=== PATIENT | male | born 1950 | race African-American/Black ===

== ENCOUNTER 2016-03-15 13:40 | Emergency (ER) | payer OTHER ==
[~2016-03-15] VITALS: Ht 177.8 cm; Wt 54.4 kg
[2016-03-15 14:03] VITALS: BP 112/72
== END 2016-03-15 14:00 | disposition left against medical advice (07) ==
LOC: EDBD 13:40 → ER 13:46
DX: R06.02 Shortness of breath (principal); Z53.21 Procedure and treatment not carried out due to patient leaving prior to being seen by health care provider